=== PATIENT | male | born 1950 | race Caucasian/White ===

== ENCOUNTER 2018-11-29 09:02 | Day surgery (SDC) | payer MEDICARE ==
[~2018-11-29] VITALS: Ht 180.3 cm; Wt 87.7 kg
[~2018-11-29 09:02] MED LIST: Advil200 M1 PO; Aspir 8181 MG PO; Cosopt Plus10 ML BOTHEYES; LEVSOD75 PO; Methazolamide25 MG PO; ROSU5 PO; Xalatan2.5 ML BOTHEYES
== END 2018-11-29 10:57 | disposition home or self-care (01) ==
LOC: ORSCSDS 09:02
PROVIDERS: Internal Medicine Gastroenterology
PROC: 0DJD8ZZ Inspection of Lower Intestinal Tract, Via Natural or Artificial Opening Endoscopic (ICD-10-PCS; principal; 2018-11-29 10:15)
DX: Z12.11 Encounter for screening for malignant neoplasm of colon (principal); K64.8 Other hemorrhoids; K57.30 Diverticulosis of large intestine without perforation or abscess without bleeding; Z87.891 Personal history of nicotine dependence; Z79.82 Long term (current) use of aspirin; Z79.899 Other long term (current) drug therapy
CPT/HCPCS: J7120

== ENCOUNTER 2025-05-27 08:50 | Day surgery (SDC) | payer MEDICARE, BC ==
[2025-05-27] VITALS (9 sets, daily range): BP systolic 105–131; BP diastolic 62–81
[~2025-05-27] VITALS: Ht 180.3 cm; Wt 93.0 kg
[~2025-05-27 08:50] MED LIST changes: -Advil200 M1 PO; -Cosopt Plus10 ML BOTHEYES; +DORZOLAMIDE-TIM10 ML BOTHEYES; +EZETIMIBE10 M6 PO; +IBUP200 PO; +LOSA50 PO; +NITR.4SL SL; +PRAV20 PO; +TAMS.4ER PO; +TIMDOROPSO BOTHEYES
[2025-05-27] MEDS ORDERED: Heparin Sodium 1000 Units/ML 10ML MDV ONE (12:07)
[2025-05-27] MEDS ORDERED: Verapamil HCL 2.5 MG/ML 2ML Injection ONE (12:07)
[2025-05-27] MEDS ORDERED: NS 1,000 ML IV ONE ×2 (12:07→12:36)
[2025-05-27] MEDS ORDERED: NS 250 ML IV ONE (12:07)
[2025-05-27] MEDS ORDERED: Nitroglycerin 2 MG/20 ML BTL ONE (12:07)
[2025-05-27] MEDS ORDERED: Midazolam HCl 1MG / ML 2ML Vial ONE (12:36)
[2025-05-27] MEDS ORDERED: FentaNYL Citrate 50 MCG/ML 2 ML Injection ONE (12:36)
--- NOTE | 2025-05-27 14:25 | NUR ---
CARE ASSUMED OF PATIENT. RIGHT WRIST/TR BAND SITE STABLE. 3 CC'S AIR REMOVED AT 1425 W/O ISSUES. PATIENT ATE 100% OF MEAL, DANNI WELL, DENIES COMPLAINTS.
--- NOTE | 2025-05-27 14:30 | NUR ---
OOZE NOTED FROM TR BAND SITE SEVERAL MINUTES AFTER 3CC AIR REMOVED. 3CC PLACED BACK INTO BAND. AREA W/O HEMATOMA, NO ACTIVE BLEEDING.
--- NOTE | 2025-05-27 15:38 | NUR ---
AIR FROM TR BAND REMOVED SLOWLY FROM 1500 TO 1530. ALL AIR OUT BY 1530. RIGHT RADIAL ACCESS SITE REMAINS SOFT, NON-TENDER W/O HEMATOMA, SWELLING, OR BLEEDING.
--- NOTE | 2025-05-27 16:43 | NUR ---
PT OOB TO DRESS, RIGHT TR BAND SITE STABLE. TR BAND REMOVED AND DRESSING PLACED. AREA W/O SWELLING, BLEEDING, HEMATOMA, TENDERNESS. WRIST IMMOBILIZER IN PLACE. IV DC'D INTACT. VERBAL AND WRITTEN DISCHARGE INSTRUCTIONS GIVEN TO PATIENT WITH CLEAR UNDERSTANDING. PATIENT DC'D HOME IN STABLE CONDITION AT 1645. PT'S FRIEND DRIVING HIM HOME. PATIENT ESCORTED OUT VIA WHEELCHAIR.
== END 2025-05-27 23:00 | disposition home or self-care (01) ==
LOC: MHTC 08:50
DX: I25.10 Atherosclerotic heart disease of native coronary artery without angina pectoris (principal); I25.82 Chronic total occlusion of coronary artery; I10 Essential (primary) hypertension; E78.5 Hyperlipidemia, unspecified; H40.10X0 Unspecified open-angle glaucoma, stage unspecified; E03.9 Hypothyroidism, unspecified; R06.09 Other forms of dyspnea; R11.0 Nausea; R53.83 Other fatigue; R93.1 Abnormal findings on diagnostic imaging of heart and coronary circulation; R94.39 Abnormal result of other cardiovascular function study; Z79.82 Long term (current) use of aspirin; Z79.890 Hormone replacement therapy; Z79.899 Other long term (current) drug therapy; Z88.8 Allergy status to other drugs, medicaments and biological substances; Z87.891 Personal history of nicotine dependence
CPT/HCPCS: 36415; 76937; 80048; 85025; 85610; 93458; 99152; 99153; C1769; C1887; C1894; J1644; J2250; J3010; J7030; J7050; Q9967